=== PATIENT | female | born 1970 | race Two or more races ===

== ENCOUNTER → 2016-06-18 | Outpatient (CLI) | payer OTHER ==
[~2016-06-18] MED LIST: CYMBALTA20 MG PO; OMEPRAZOLE20 M2 PO; XANAX0.5 MG PO
--- NOTE | ~2016-06-18 | CT134 ---
[facility] A Service of [facility] & [facility] RADIOLOGY TEXT RESULTS PATIENT: DOMINIQUE MCINTOSH [facility] [birth year] UNIT #: [id number] AGE: [address]: Jose Miguel Shahid MD SEX: F ORDER DR: [id number] [facility] [address] [place], [place] [address] [id number] O MR#: [id number] Acc #: [id number] NAME: DOMINIQUE MCINTOSH : 1970 SEX: F STUDY DATE/TIME: 06/18/2016 11:04 [facility] ROOM: STUDY DESCRIPTION: CT Guide Attending Physician: Jose Miguel Shahid M.D. Referring Physician: Jose Miguel Shahid M.D. Ordering Physician: Jose Miguel Shahid M.D. Primary Care Physician: Jose Miguel Shahid M.D. MEDICAL IMAGING REPORT This report is preliminary unless electronic signature is present EXAM CT guided liver biopsy. INDICATIONS Abnormal elevated liver function tests. This CT exam was performed with one or more of the following radiation dose reduction techniques: automatic exposure control, adjustment of mA and/or kV according to patient size, and iterative reconstruction. PROCEDURE The risks, benefits, and alternatives to the procedure were explained to the patient, and signed informed consent was obtained. She was placed supine on the CT scanner gantry. CT scan was performed through the region of interest and appropriate site overlying the patient's right hepatic lobe was selected and overlying skin was marked. Patient was prepped and draped usual sterile fashion. Timeout was performed per protocol. Skin and subcutaneous tissues were anesthetized with buffered lidocaine and anesthesia needle was left in place. Repeat CT scan to insure appropriate trajectory of the needle and exchanged for 16-gauge coaxial needle which was advanced into the right hepatic lobe, repeat CT scan deemed appropriate positioning of the needle and at this point three core samples were obtained using an 18-gauge BioPince biopsy gun. Needle was then removed and manual pressure was applied and hemostasis was obtained. Patient did receive conscious sedation consisting of 5 mg of Versed and 150 microgram of Fentanyl and continuous monitoring for 33 minutes was provided by the IVR nurse. IMPRESSION Technically successful CT-guided liver biopsy as noted above. CT was used during the procedure and permanent images were saved. Dictated by... [facility] A Service of [facility] RADIOLOGY TEXT RESULTS PATIENT: DOMINIQUE MCINTOSH LOCATION: [facility] : 70 UNIT #: [id number] AGE: [address]: Jose Miguel Shahid MD SEX: F ORDER DR: Jessenia Ricks M.D. THIS IS AN ELECTRONICALLY VERIFIED REPORT Jessenia Ricks M.D. at 06/20/2016 2:08 PM AFF/dj TD: 06/19/2016 11:54 JOB #: [id number] MEDICAL IMAGING REPORT Page 1 of 1 COPY
[2016-06-18 09:38] LABS: HEMATOCRIT 45.2 % (35.0-45.0); HEMOGLOBIN 14.7 gm/dL (12.0-16.0); MEAN CORPUSCULAR HEMOGLOBIN 29.3 PG (28-34); MEAN CORPUSCULAR HGB CONC 32.6 g/dL (30-36); MEAN PLATELET VOLUME 9.7 FL (6.5-11.5); RED BLOOD COUNT 5.03 X10e (3.90-5.30); RED CELL DISTRIBUTION WIDTH 13.2 % (11.0-15.5); WHITE BLOOD COUNT 5.6 X10e3 (4.0-10.5)
[2016-06-18 09:53] LABS: PARTIAL THROMBOPLASTIN TIME 26.3 SECONDS (23.5-31.3); PROTHROMBIN TIME (PATIENT) 10.7 SECONDS (9.6-11.5)
[2016-06-18 10:05] LABS: ALBUMIN SERUM 4.6 g/dL (3.5-5.0); BILIRUBIN,TOTAL 0.5 mg/dL (0.2-2.0); BUN/CREATININE RATIO 23.33; CALCIUM SERUM 9.6 mg/dL (8.4-10.2); CREATININE SERUM 0.6 mg/dL (0.6-1.4); GLOM FILT RATE Estimated 109.3 mL/min (>60); POTASSIUM 3.4 mmol/L (3.5-5.1); PROTEIN TOTAL SERUM 7.8 g/dL (6.0-8.3)
[2016-06-20 15:44] LABS: ANA SCREEN Negative (Negative)
== END | disposition home or self-care (01) ==
LOC: CIVR 08:49
PROVIDERS: Internal Medicine Gastroenterology
DX: R94.5 Abnormal results of liver function studies (principal); R10.13 Epigastric pain
CPT/HCPCS: 36415; 77012; 80053; 82728; 83540; 85027; 85610; 85730; 86038; 86039; 88307; 88313; J2250; J3010

== ENCOUNTER → 2016-07-27 | Day surgery (SDC) | payer OTHER ==
--- NOTE | ~2016-07-27 | OR ---
Unit #: [id number] #: [id number] Patient: DOMINIQUE NORRIS [id number] [address] [place], [place] [address] [id number] O MR#: [id number] NAME: DOMINIQUE NORRIS ROOM: Date of Procedure: 07/27/2016 Admission Date: 07/27/2016 Surgeon: Jose Miguel Shahid M.D. : 1970 Attending Physician: Jose Miguel Shahdi M.D. Referring Physician: Jose Miguel Shahid M.D. Primary Care Physician: Generic Doctor Not In System OPERATIVE REPORT PREOPERATIVE DIAGNOSES Epigastric pain and dyspepsia. PROCEDURE PERFORMED Upper gastrointestinal endoscopy and biopsy. POSTOPERATIVE DIAGNOSES The patient had mild prepyloric antral erosive gastritis. Otherwise, examination was normal up to third part of duodenum. A biopsy was obtained from the antrum for CLOtest. RECOMMENDATIONS The patient will continue current medications. In addition, the results of liver biopsy and ultrasound will be followed up in the office in 8 weeks' time. SEDATION USED MAC. DESCRIPTION OF PROCEDURE Following detailed explanation of potential risks and complications of an upper endoscopy, namely perforation, bleeding, and complication related to sedation, the patient was brought to GI lab and laid in the left lateral decubitus position. Lubricated tip of the Olympus video upper endoscope was passed through bite block into the proximal esophagus under direct vision. The entire esophageal mucosa was examined and appeared normal. Z-line was nicely demarcated, there being no esophagitis or hiatus hernia. The scope was then advanced into the gastric cavity and the latter was insufflated. Mucosa of the fundus, body, and antrum examined and the patient was noted to have [id number] prepyloric antral erosions and erythema indicating antral gastritis. Pylorus was intubated with visualization of normal duodenal bulb and second and third part of the duodenum. Upon withdrawal and retroflexion, incisura, cardia, and greater curve examined and biopsy obtained from the antrum for CLOtest. The scope was withdrawn in the distal esophagus. Entire esophageal mucosa was examined all the way up to pharynx, no additional findings noted. The patient tolerated the procedure without any postprocedure complications. Dictated by... Jose Miguel Shahid M.D. Unit #: [id number] #: [id number] Patient: DOMINIQUE NORRIS VENESSA/sandrita TD: 07/27/2016 22:25 JOB #: [id number] CC: Jj Alarcon M.D. OPERATIVE REPORT Page 1 of 1 X Jose Miguel Shahid MD PROCEDURE OPERATIVE NOTE
--- NOTE | ~2016-07-27 | US6 ---
[facility] A Service of [facility] RADIOLOGY TEXT RESULTS PATIENT: DOMINIQUE NORRIS LOCATION: [facility] : 70 UNIT #: [id number] AGE: [address]: Jose Miguel Shahid MD SEX: F ORDER DR: [id number] [place] [id number] [facility] [place], [place] [address] [id number] O MR#: [id number] Acc #: [id number] NAME: DOMINIQUE NORRIS : 1970 SEX: F STUDY DATE/TIME: 07/27/2016 7:36 UNIT: [facility]PERATOR ROOM: STUDY DESCRIPTION: US Abdominal Limited Attending Physician: Jose Miguel Shahid M.D. Referring Physician: Jose Miguel Shahid M.D. Ordering Physician: Jose Miguel Shahid M.D. Primary Care Physician: Generic Doctor Not In System MEDICAL IMAGING REPORT This report is preliminary unless electronic signature is present EXAM Right upper quadrant abdominal ultrasound DATE: 07/27/2016 HISTORY 46-year-old female with abnormal elevated liver function test. Patient denies current abdominal complaints. COMPARISON CT-guided liver biopsy images 06/18/2016. FINDINGS Pancreas has a normal appearance. Liver demonstrates normal homogeneous echotexture, and no focal liver lesions identified. Liver size is within normal limits measuring about 15.1 cm in the long axis. No ascites is demonstrated. Intrahepatic IVC has a normal kitchen-scale appearance. The right kidney measures 11.6 cm in length without focal cortical lesion, shadowing stone or hydronephrosis. Common bile duct caliber is normal, 5 mm, no intrahepatic biliary ductal dilation is seen. IMPRESSION 1. Normal right upper quadrant abdominal ultrasound. Dictated by... Edith Maya M.D. THIS IS AN ELECTRONICALLY VERIFIED REPORT Edith Maya M.D. at 07/30/2016 8:30 AM AUDIE/nany TD: 07/27/2016 11:54 JOB #: [id number] [facility] A Service of [facility] & [facility] RADIOLOGY TEXT RESULTS PATIENT: DOMINIQUE NORRIS LOCATION: [facility] #: [id number] : [birth year] UNIT #: [id number] AGE: [address]: Jose Miguel Shahid MD SEX: F ORDER DR: MEDICAL IMAGING REPORT Page 1 of 1 COPY
[2016-07-27 07:16] LABS: PROTHROMBIN TIME (PATIENT) 10.9 SECONDS (9.6-11.5)
[2016-07-27 07:53] LABS: ALBUMIN SERUM 4.2 g/dL (3.5-5.0); BILIRUBIN,TOTAL 0.8 mg/dL (0.2-2.0); CALCIUM SERUM 9.5 mg/dL (8.4-10.2); CREATININE SERUM 0.5 mg/dL (0.6-1.4); GLOM FILT RATE Estimated 116.1 mL/min (>60); POTASSIUM 4.1 mmol/L (3.5-5.1); PROTEIN TOTAL SERUM 6.8 g/dL (6.0-8.3)
[2016-07-27 08:27] LABS: BASOPHIL% 0.6 % (0-2.5); EOSINOPHIL# 0.1 X10e3 (0-0.7); HEMATOCRIT 44.8 % (35.0-45.0); HEMOGLOBIN 14.5 gm/dL (12.0-16.0); LYMPHOCYTE# 2.8 X10e3 (1.0-3.5); LYMPHOCYTE% 46.4 % (17.0-45.0); MEAN CELL VOLUME 89.7 FL (83-96); MEAN CORPUSCULAR HEMOGLOBIN 29.1 PG (28-34); MEAN CORPUSCULAR HGB CONC 32.4 g/dL (30-36); MEAN PLATELET VOLUME 10.4 FL (6.5-11.5); MONOCYTE# 0.6 X10e3 (0-1.0); MONOCYTE% 9.4 % (3.0-12.0); NEUTROPHIL# 2.6 X10e3 (1.5-7.1); NEUTROPHIL% 42.6 % (40-75); PLATELET COUNT 210 X10e3 (140-420); RED CELL DISTRIBUTION WIDTH 13.4 % (11.0-15.5); WHITE BLOOD COUNT 6.1 X10e3 (4.0-10.5)
[2016-07-27 08:29] LABS: DIFF IND NO
[2016-07-30 14:56] LABS: ANA SCREEN Positive (Negative); ANA TITER (ANA) 1:40 (Negative); ANA TITER COMMENT Has been added (()); NUCLEAR PATTERN (ANA) Homogeneous (())
== END | disposition home or self-care (01) ==
LOC: COPS 06:14 → EDSTATUS 07:30 → COPS 07:30 → CGUS 07:30
PROVIDERS: Internal Medicine Gastroenterology
DX: K29.60 Other gastritis without bleeding (principal); R94.5 Abnormal results of liver function studies; K21.9 Gastro-esophageal reflux disease without esophagitis; F41.9 Anxiety disorder, unspecified; Z88.0 Allergy status to penicillin
CPT/HCPCS: 76705; 80053; 82728; 83516; 83540; 83550; 85025; 85610; 86038; 86039; 87077; J2250